=== PATIENT | female | born 1970 | race Caucasian/White ===

== ENCOUNTER → 2020-08-26 11:23 | Outpatient (CLI) | payer OTHER, SELFPAY ==
[2020-08-30 17:01] LABS: HPV APTIMA, High Risk Negative (Negative)
== END ==
PROVIDERS: PCP Family Medicine; Visit Provider Obstetrics & Gynecology
DX: Z12.4 Encounter for screening for malignant neoplasm of cervix (principal)
CPT/HCPCS: 87624; 88175; G0145

== ENCOUNTER → 2020-09-02 15:52 | Outpatient (CLI) | payer OTHER, SELFPAY ==
--- NOTE | 2020-09-02 | EMB_PTH ---
PATIENT: HI KU LOC: [facility] U#:[id number] AGE/SX: 54/F ROOM: RE09/02/[address]: Dr. Kelechi Carrasquillo MD : 1970 BED: DIS: SPEC #: [id number] RECD: 09/02/20 16:25 STATUS: BARRY REAnthony #: [id number] SHENA: 09/02/20 00:[address]: Kelechi Carrasquillo DEPT: SURGICAL PATHOLOGY RECD BY: Artie Rogers ENTERED: 09/03/20 07:57 SP TYPE: ENDOM BX/C BANDAR DR: Dr. Dorie Stratton MD Tissues: Endometrium, NOS Procedures: Surgery Specimen Level IV HEADER OPERATION: Endometrial biopsy PRE-OP DIAGNOSIS: Abnormal bleeding TISSUE SUBMITTED: Endometrial biopsy MICROSCOPIC DIAGNOSIS Endometrial biopsy: Scant superficial fragments of weakly proliferative endometrium and blood clots. See comment. PATI:[email or web address] 09/06/2020 COMMENT The specimen predominantly consists of blood clots. Clinical correlation and appropriate follow up are necessary. MICROSCOPIC DESCRIPTION Slides are reviewed. GROSS DESCRIPTION Received in fixative is one container labeled with the patient's name and designated EMB. The specimen consists of multiple fragments of hemorrhagic soft tissue that in aggregate measure 3 x 2.5 x 0.3 cm. The specimen is totally submitted in one cassette. / SJ:bebeto 09/03/20 TC:4 CPT: 43499
== END ==
PROVIDERS: PCP Family Medicine; Visit Provider Obstetrics & Gynecology
DX: N93.9 Abnormal uterine and vaginal bleeding, unspecified (principal)
CPT/HCPCS: 88305

== ENCOUNTER 2022-12-25 19:22 | Emergency (ER) | payer BC, SELFPAY ==
[2022-12-25 19:23] VITALS: BP 116/94; PULSE 110; RESP 18; TEMP 36.6; O2SAT 100
[2022-12-25 19:24] VITALS: BP 116/94; PULSE 110; RESP 18; TEMP 36.6; O2SAT 100; BMI 22.9
--- NOTE | 2022-12-25 19:45 | CT_ITS ---
STUDY: CT BRAIN WITHOUT CONTRAST REASON FOR EXAM: Female, 52 years old. Numbness right lower extremity, Hernandez''s palsy, bit RADIATION DOSAGE (If Supplied By Facility): CTDIvol = ( 44.99 ) mGy, DLP = ( 796.11 ) mGycm TECHNIQUE: Transaxial CT imaging of the brain was performed without administration of intravenous contrast material. Individualized dose optimization techniques were used for this CT. COMPARISON: MR brain 03/06/2013. FINDINGS: Normal soft tissue structures. Normal calvarium. Normal size ventricles and extra-axial spaces for the patient''s age. Normal white matter tracts of the cerebral hemispheres. Normal basal ganglia and thalami. Normal brainstem. Normal cerebellum. There is no intracranial hemorrhage. There are no findings of an acute ischemic infarction. Normal visualized paranasal sinuses. CT/Brain/Head without Contrast IMPRESSION: Normal unenhanced CT scan of the brain. Electronically Signed: Lizeth Beaver MD at 20:43 EDT Reading Location ID and State: [id number] / Tel , Service support ,
[2022-12-25 19:48] VITALS: BP 116/94; PULSE 110; RESP 18; O2SAT 100
[2022-12-25 19:49] VITALS: BMI 22.9
[2022-12-25 20:03] LABS: Absolute Lymphocyte Count 1.67 X10^3/uL (0.83-4.51); Absolute Neutrophil Count 3.8 X10^3/uL (2.0-7.7); Basophil# 0.04 X10^3/uL; Basophil% 0.6 % (0-1); Eosinophils% 4.8 % (0-5); Hematocrit 38.1 % (37-47); Hemoglobin 12.1 g/dL (12.0-15.0); Lymphocyte # 1.67 X10^3/ul (0.83-4.51); Lymphocyte % 26.8 % (19-41); Mean Corp Hgb Conc 31.8 g/dL (32-36); Mean Corpuscular Hgb 27.4 pg (27.0-32.0); Mean Corpuscular Volume 86.4 fL (81-99); Mean Platelet Vol. 10.4 fl (6.2-12.0); Monocyte# 0.42 X10^3/uL; Monocyte% 6.8 % (0-10); NRBC Flagged by Analyzer 0 % (0-5); Neutrophil # 3.77 X10^3/uL (2.7-7.7); Neutrophil % 60.7 % (47-70); Platelet Count 265 K/mm3 (150-450); RBC Distribution Width CV 13.2 % (11.6-14.6); RBC Distribution Width SD 41.1 fl (35.1-43.9); Red Blood Count 4.41 M/mm3 (4.2-5.4); White Blood Count 6.2 K/mm3 (4.4-11.0)
--- NOTE | 2022-12-25 20:04 | EDS_ITS ---
HPI History of Present Illness Chief Complaint: Neuro S/Sx Detail of Chief Complaint: Possible tick bite/insect bite with neurologic symptoms Informant: patient Onset/Context/Timing Onset: Weeks Context: Sudden Onset Timing: Continuous Quality: Paresthesia of right lower extremity, Hernandez's palsy, rash pubic region Location: HPI narrative for details Current Severity: Mild Maximum Severity: Mild Worsened by: Nothing Relieved by: Nothing Associated Symptoms Associated Symptoms: Mild headache. No visual, ocular auditory symptoms. No photophobia. Narrative Narrative: Patient is a 52-year-old woman who presents with multiple symptoms. She has been bit by insect several weeks ago and first part of December. She initially complained of aching in her right forearm. She then complained about discomfort in the right heel which radiated cephalad. This was then followed by total right lower extremity numbness, December 02 she also was bit by something prior to her symptoms in the right lower extremity. She denies fever or chills. She denies double vision, blurred vision or loss of vision. She denies neck pain but complains of neck stiffness. She denies respiratory or cardiac symptoms. She denies GI symptoms. She denies urologic symptoms. She has not noted a rash other than the bite in the pubic area She states the facial numbness and weakness started last week. Prior similar symptoms: No Recent Illness/Hospitalization: No PFSH PFS Medical History Hypothyroidism Allergy/AdvReac Type Severity Reaction Status Date / Time No Known Allergies Allergy Verified 12/25/22 19:45 Social History (Updated 12/25/22 @ 20:[address] Flaco Chavez MD) household members: spouse Smoking Status: Never smoker substance use type: does not use ROS ROS ED Constitutional Constitutional ED: Denies chills, fever(s), subjective, sweats or weight loss Eyes Eyes: Denies blurry vision, change in vision, diplopia or other ENT ENT ED: Denies ear pain, rhinorrhea, sore throat or other Cardiovascular Cardiovascular: Denies chest pain, orthopnea, palpitations, paroxysmal nocturnal dyspnea, racing heartbeat or other Respiratory/Chest Respiratory/Chest: Denies cough, dyspnea, dyspnea on exertion, orthopnea, paroxysmal nocturnal dyspnea, sputum or other Gastrointestinal Gastrointestinal: Denies abdominal pain, constipation, diarrhea, melena, nausea, vomiting or other Genitourinary Genitourinary ED: Denies dysuria, hematuria, LMP (females 10-50), urinary frequency or other Musculoskeletal Musculoskeletal: Reports arthralgias and myalgias Integumentary Reports rash Neurologic Neurologic: Denies paresthesias or weakness Endocrine Endocrinology: Denies cold intolerance, heat intolerance or polydipsia Hematologic/Lymphatic Hematologic/Lymphatic: Reports systems reviewed and no addt'l complaints, except as documented Allergic/Immunologic Allergic/Immunologic ED: Denies mouth swelling, tongue swelling or urticaria EXAM Physical Exam Const Vital Signs: 12/25/22 19:24 12/25/22 19:23 12/25/22 19:48 Temperature 97.8 F 97.8 F Temperature Source Temporal Temporal Pulse Rate 110 H 110 H 110 H Respiratory Rate 18 18 18 Blood Pressure 116/94 H 116/94 H 116/94 H Blood Pressure Mean 101 101 101 Pulse Ox 100 100 100 Oxygen Delivery Method Room Air Room Air Room Air Positive well nourished and well developed General Appearance ED: well developed and NAD; Negative for pallor HEENT Reports moist mucous membranes HEENT Narrative: Patient has asymmetric facial expression on the right. Findings are consistent with Hernandez's palsy on the right. There is no lesions noted the ear to suggest Strawn Lucero syndrome. Nares patent. Posterior pharynx is normal. Eyes PERRL and EOMs intact bilaterally Eyes Narrative: There is no nystagmus. General Eye ED: Negative for pale conjunctiva or scleral icterus Neck no lymphadenopathy, supple and no JVD Neck Narrative: There is no mid GI findings. Resp normal respiratory effort and clear to auscultation bilaterally Cardio regular rate, regular rhythm, S1 normal heart sound, S2 normal heart sound and no murmurs GI normal to inspection, nondistended, normoactive bowel sounds, non-tender, non- distended and no masses; Negative for hepatosplenomegaly Back/Spine no CVA tenderness Extremity normal to inspection General Extremety ED: Negative for edema or tenderness General Extremity: Negative for edema Neuro oriented x3, No CN's II-XII intact bilaterally and No no sensory deficits noted Neuro Narrative: There is no dysmetria. There is no clonus or Babinski sign noted. Patient does have Hernandez's palsy on the left. Sensorium / Orientation: alert Motor Exam: strength 5/5 throughout Psych mental status grossly normal Skin no rashes or lesions noted, no wounds and skin turgor normal General Skin Exam: Negative for jaundice or pallor MDM MDM MDM Narrative Medical decision making narrative: With insect bite possible tick bite since there cats have ticks differential would include Lyme disease since she has Hernandez's palsy. 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 Work-up included CAT scan appropriate blood work review of prior records. History & Record Review Additional record(s) reviewed:: Prior outpatient record Lab Data Attestation: I reviewed the patient's lab results. Lab results narrative: CBC is normal. Comprehensive metabolic panel reveals slight elevation of ALT and alkaline phosphatase 69 and 1.37. Comprehensive metabolic panel is otherwise unremarkable Labs: Laboratory Results - last 24 hr 12/25/22 19:58 WBC 6.2 RBC 4.41 Hgb 12.1 Hct 38.1 MCV 86.4 MCH 27.4 MCHC 31.8 L RDW Std Deviation 41.1 RDW Coeff of Victor M 13.2 Plt Count 265 MPV 10.4 Immature Gran % (Auto) 0.300 Neut % (Auto) 60.7 Lymph % (Auto) 26.8 Carbon % (Auto) 6.8 Eos % (Auto) 4.8 Baso % (Auto) 0.6 Absolute Neuts (auto) 3.8 Absolute Lymphs (auto) 1.67 Nucleated RBC % 0 Sodium 139 Potassium 3.8 Chloride 106 Carbon Dioxide 32.0 Anion Gap 1 L BUN 15 Creatinine 1.01 Estim Creat Clear Calc 60.30 Est GFR (MDRD) Af Amer 74 Est GFR (MDRD) Non-Af 61 BUN/Creatinine Ratio 14.9 Glucose 108 H Calcium 8.7 Total Bilirubin 0.30 AST 22 ALT 69 H Alkaline Phosphatase 137 H Total Protein 7.1 Albumin 3.1 L Globulin 4.0 Albumin/Globulin Ratio 0.8 L Radiography Diagnostic Testing: Clinical Impression(s) from Imaging Studies Brain CT 12/25/22 19:45 IMPRESSION: Normal unenhanced CT scan of the brain. Electronically Signed: Lizeth Beaver MD at 20:43 EDT Reading Location ID and State: [id number] / Tel , Service support , Treatment and Re-Evaluation :: Patient and were informed of results. Since Lyme disease is in the differential prednisone was not given. She was instructed to put 1 drop of artificial tears in her right eye every hour while awake. Also use a lubricant gel at bedtime so that her eye does not dry out. Discharge Plan Triage Chief Complaint: Neuro S/Sx ED Provider: Flaco Chavez Dx/Rx/DC Orders Clinical Impression: Right-sided Hernandez's palsy, Paresthesia of right lower extremity, Insect bite Instructions: ED Hernandez's Palsy, ED Paraesthesias Primary Care Provider: Ericka Bae Referrals: Dorie Stratton MD [Med Staff - Casket Assembler] - Ericka Bae DO [Primary Care Provider] - 3-5 Days Disposition Disposition: Home, Self Care
[2022-12-25 20:20] LABS: ALB/GLOB Ratio 0.8 RATIO (0.9-2.4); AST(SGOT) 22 U/L (15-37); Alanine Aminotransfer ALT/SGPT 69 U/L (13-56); Albumin, Serum 3.1 g/dL (3.2-5.0); Alkaline Phosphatase 137 U/L (45-117); Anion Gap 1 (5-15); BUN 15 mg/dL (7-18); BUN/Creat Ratio 14.9 RATIO (10-20); Calcium,Total 8.7 mg/dL (8.5-10.1); Chloride 106 mmol/L (98-107); Creatinine, Serum 1.01 mg/dL (0.55-1.02); EST Glomerular Filtration Rate 61 mL/min (>60); Est Glom Filt Rate - Afr Amer 74 mL/min (>60); Glucose 108 mg/dL (74-106); Potassium 3.8 mmol/L (3.5-5.1); Protein, Total 7.1 g/dL (6.4-8.2); Sodium Level 139 mmol/L (136-145)
[2022-12-25 22:35] VITALS: PULSE 68; RESP 16
== END 2022-12-25 23:08 | disposition home or self-care (01) ==
PROVIDERS: Emergency Provider Emergency Medicine; PCP Family Medicine; Visit Provider Emergency Medicine
DX: G51.0 Bell's palsy (principal); R20.2 Paresthesia of skin
CPT/HCPCS: 70450; 80053; 85025; 86618; 99283

== ENCOUNTER → 2023-01-03 | Outpatient (CLI) | payer BC, SELFPAY ==
[2023-01-03 13:01] LABS: Progesterone Level 0.36 ng/mL (See Comment)
[2023-01-03 13:20] LABS: Estradiol < 11.0 pg/mL; Free T3 2.7 pg/mL (2.18-3.98); T4 Free Direct 0.98 ng/dL (0.76-1.46)
[2023-01-04 04:06] LABS: Thyroid Peroxidase AB < 9 IU/mL (0-34)
== END | disposition home or self-care (01) ==
PROVIDERS: PCP Family Medicine; Referring Provider Preventive Medicine Public Health & General Preventive Medicine; Visit Provider Preventive Medicine Public Health & General Preventive Medicine
DX: E03.9 Hypothyroidism, unspecified (principal); E34.9 Endocrine disorder, unspecified; N95.1 Menopausal and female climacteric states
CPT/HCPCS: 36415; 82670; 84144; 84403; 84439; 84443; 84481; 86376

== ENCOUNTER → 2023-02-06 | Outpatient (CLI) | payer BC, SELFPAY ==
[2023-02-06 11:02] LABS: Hemoglobin A1c 5.2 % (3.8-5.6)
[2023-02-06 11:06] LABS: Free T3 3.8 pg/mL (2.18-3.98)
[2023-02-06 14:50] LABS: Insulin 6.6 mU/L (2.6-37.6)
[2023-02-07 14:08] LABS: C-Peptide 2.3 ng/mL (1.1-4.4); Thyroid Peroxidase AB 10 IU/mL (0-34)
== END | disposition home or self-care (01) ==
LOC: MTLAB 08:02
PROVIDERS: PCP Family Medicine; Referring Provider Preventive Medicine Public Health & General Preventive Medicine; Visit Provider Preventive Medicine Public Health & General Preventive Medicine
DX: E03.9 Hypothyroidism, unspecified (principal); E27.49 Other adrenocortical insufficiency; E16.2 Hypoglycemia, unspecified
CPT/HCPCS: 36415; 82533; 83036; 83525; 84439; 84443; 84481; 84681; 86376

== ENCOUNTER → 2023-04-04 | Outpatient (CLI) | payer BC, SELFPAY ==
[2023-04-06 14:53] LABS: Lyme Scn Total Ab w/Rflx Positive (Negative)
== END | disposition home or self-care (01) ==
LOC: MTLAB 14:47
PROVIDERS: PCP Family Medicine; Referring Provider Family Medicine; Visit Provider Family Medicine
DX: A69.20 Lyme disease, unspecified (principal)
CPT/HCPCS: 36415; 86618

== ENCOUNTER → 2023-09-25 | Outpatient (CLI) | payer BC, SELFPAY ==
--- NOTE | 2023-09-25 15:44 | RAD_ITS ---
INDICATION: R knee pain EXAMINATION/TECHNIQUE: X-RAY - RIGHT XR Knee Complete 4 Views COMPARISON: FINDINGS: SOFT TISSUES: No soft tissue swelling or gas. No radiopaque foreign body. Mild suprapatellar effusion. BONES/JOINTS: No acute fracture or subluxation.. Normal alignment. Preservation of the joint space.. No sclerotic or destructive changes observed. RAD/Knee 4 or More Views IMPRESSION: Mild effusion. Electronically Signed: Augustine Fong DO at 16:07 EDT ,
== END | disposition home or self-care (01) ==
LOC: MTRAD 15:34
PROVIDERS: PCP Family Medicine; Referring Provider Family Medicine; Visit Provider Family Medicine
DX: M25.561 Pain in right knee (principal)
CPT/HCPCS: 73564

== ENCOUNTER → 2023-10-15 | Outpatient (CLI) | payer BC, SELFPAY ==
--- NOTE | 2023-10-15 08:29 | MRI_ITS ---
EXAM: MR RIGHT LOWER EXTREMITY WITHOUT INTRAVENOUS CONTRAST, KNEE CLINICAL INDICATION: swelling, hx of lyme disease untreated TECHNIQUE: Multiplanar and multisequence MR images of the right knee without intravenous contrast. COMPARISON: No relevant prior studies available. FINDINGS: BONES/JOINTS: Full-thickness fissures involving the lateral patellar facet without subchondral marrow signal alterations. EXTENSOR MECHANISM: Unremarkable. MEDIAL MENISCUS: Unremarkable. LATERAL MENISCUS: Complex lateral meniscus tear at the junction of the posterior root ligament and posterior horn of the lateral meniscus. MEDIAL CAPSULE/SUPPORTING STRUCTURES: Unremarkable. Intact. LATERAL CAPSULE/SUPPORTING STRUCTURES: Unremarkable. Lateral collateral ligamentous complex, inclusive of the popliteal tendon, are intact. ANTERIOR CRUCIATE LIGAMENT: Unremarkable. Intact. POSTERIOR CRUCIATE LIGAMENT: Unremarkable. Intact. MUSCLES: Unremarkable. CARTILAGE: Full-thickness chondral defect at the middle weightbearing portion of the lateral femoral condyle without subchondral marrow signal alterations. FLUID: Large joint effusion. Small Hammonds''s cyst without evidence of inferior leakage/rupture. OTHER SOFT TISSUES: Subcutaneous edema along the the lateral aspect of the extremity. MRI/Lower Ext Joint Only (Routine) IMPRESSION: 1. Complex lateral meniscus tear at the junction of the posterior root ligament and posterior horn of the lateral meniscus. 2. Full-thickness fissures involving the lateral patellar facet without subchondral marrow signal alterations. 3. Full-thickness chondral defect at the middle weightbearing portion of the lateral femoral condyle without subchondral marrow signal alterations. 4. Large joint effusion with a small Hammonds''s cyst with evidence of inferior leakage or rupture. Electronically Signed: Marvin Rowell MD at 21:36 EDT ,
== END | disposition home or self-care (01) ==
PROVIDERS: PCP Family Medicine; Referring Provider Orthopaedic Surgery Sports Medicine; Visit Provider Orthopaedic Surgery Sports Medicine
DX: M79.89 Other specified soft tissue disorders (principal); Z86.19 Personal history of other infectious and parasitic diseases
CPT/HCPCS: 73721

== ENCOUNTER → 2023-10-18 | Outpatient (CLI) | payer BC, SELFPAY ==
[2023-10-18 12:29] LABS: Absolute Lymphocyte Count 2.02 X10^3/uL (0.83-4.51); Absolute Neutrophil Count 5.9 X10^3/uL (2.0-7.7); Basophil# 0.06 X10^3/uL; Basophil% 0.7 % (0-1); Eosinophil# 0.29 X10^3/uL; Eosinophils% 3.2 % (0-5); Hematocrit 38.5 % (37-47); Hemoglobin 12.2 g/dL (12.0-15.0); Lymphocyte # 2.02 X10^3/ul (0.83-4.51); Lymphocyte % 22.3 % (19-41); Mean Corp Hgb Conc 31.7 g/dL (32-36); Mean Corpuscular Volume 85.2 fL (81-99); Mean Platelet Vol. 10.2 fl (6.2-12.0); Monocyte% 7.7 % (0-10); NRBC Flagged by Analyzer 0 % (0-5); Neutrophil # 5.94 X10^3/uL (2.7-7.7); Neutrophil % 65.7 % (47-70); Platelet Count 480 K/mm3 (150-450); RBC Distribution Width CV 12.6 % (11.6-14.6); Red Blood Count 4.52 M/mm3 (4.2-5.4); White Blood Count 9.1 K/mm3 (4.4-11.0)
[2023-10-18 17:43] LABS: ALB/GLOB Ratio 0.7 RATIO (0.9-2.4); AST(SGOT) 12 U/L (15-37); Alanine Aminotransfer ALT/SGPT 19 U/L (13-56); Albumin, Serum 3.2 g/dL (3.2-5.0); Alkaline Phosphatase 74 U/L (45-117); Anion Gap 6 (5-15); BUN 11 mg/dL (7-18); BUN/Creat Ratio 9.9 RATIO (10-20); Calcium,Total 9.6 mg/dL (8.5-10.1); Chloride 103 mmol/L (98-107); Creatinine, Serum 1.11 mg/dL (0.55-1.02); EST Glomerular Filtration Rate 54 mL/min (>60); Est Glom Filt Rate - Afr Amer 66 mL/min (>60); Estradiol 13.3 pg/mL; Free T3 2.9 pg/mL (2.18-3.98); Globulin 4.8 g/dL (2.2-4.2); Glucose 93 mg/dL (74-106); Sodium Level 137 mmol/L (136-145); T4 Free Direct 1.12 ng/dL (0.76-1.46); Thyroid Stim Hormone (TSH) 0.95 uIU/mL (0.358-3.74)
[2023-10-19 04:07] LABS: Thyroid Peroxidase AB 10 IU/mL (0-34)
[2023-10-20 11:09] LABS: PROGESTERONE 0.3 ng/mL (.)
== END | disposition home or self-care (01) ==
LOC: MTLAB 10:49
PROVIDERS: PCP Family Medicine; Referring Provider Preventive Medicine Public Health & General Preventive Medicine; Visit Provider Preventive Medicine Public Health & General Preventive Medicine
DX: N95.1 Menopausal and female climacteric states (principal); E03.9 Hypothyroidism, unspecified
CPT/HCPCS: 36415; 80053; 82670; 84144; 84403; 84439; 84443; 84481; 85025; 86376

== ENCOUNTER → 2024-04-29 | Outpatient (CLI) | payer BC, SELFPAY ==
[2024-04-29 15:28] LABS: Absolute Lymphocyte Count 2.31 X10^3/uL (0.83-4.51); Absolute Neutrophil Count 3.2 X10^3/uL (2.0-7.7); Basophil# 0.06 X10^3/uL; Basophil% 0.9 % (0-1); Eosinophil# 0.48 X10^3/uL; Eosinophils% 7.3 % (0-5); Hematocrit 43.2 % (37-47); Hemoglobin 13.7 g/dL (12.0-15.0); Lymphocyte # 2.31 X10^3/ul (0.83-4.51); Lymphocyte % 35.2 % (19-41); Mean Corp Hgb Conc 31.7 g/dL (32-36); Mean Corpuscular Hgb 27.2 pg (27.0-32.0); Mean Corpuscular Volume 85.7 fL (81-99); Monocyte# 0.47 X10^3/uL; Monocyte% 7.2 % (0-10); NRBC Flagged by Analyzer 0 % (0-5); Neutrophil # 3.23 X10^3/uL (2.7-7.7); Neutrophil % 49.1 % (47-70); Platelet Count 314 K/mm3 (150-450); RBC Distribution Width CV 13.4 % (11.6-14.6); RBC Distribution Width SD 42.1 fl (35.1-43.9); Red Blood Count 5.04 M/mm3 (4.2-5.4); White Blood Count 6.6 K/mm3 (4.4-11.0)
[2024-04-29 16:15] LABS: AST(SGOT) 20 U/L (15-37); Alanine Aminotransfer ALT/SGPT 38 U/L (13-56); Albumin, Serum 3.8 g/dL (3.2-5.0); Alkaline Phosphatase 81 U/L (45-117); Anion Gap 6 (5-15); BUN 13 mg/dL (7-18); BUN/Creat Ratio 14.7 RATIO (10-20); Calcium,Total 9.1 mg/dL (8.5-10.1); Chloride 106 mmol/L (98-107); Creatinine, Serum 0.88 mg/dL (0.55-1.02); EST Glomerular Filtration Rate 71 mL/min (>60); Est Glom Filt Rate - Afr Amer 86 mL/min (>60); Estradiol 50.7 pg/mL; Free T3 3.4 pg/mL (2.18-3.98); Globulin 3.9 g/dL (2.2-4.2); Glucose 70 mg/dL (74-106); Potassium 3.7 mmol/L (3.5-5.1); Protein, Total 7.7 g/dL (6.4-8.2); Sodium Level 139 mmol/L (136-145); T4 Free Direct 0.84 ng/dL (0.76-1.46); Thyroid Stim Hormone (TSH) 0.853 uIU/mL (0.358-3.740)
[2024-04-30 04:08] LABS: PROGESTERONE 0.4 ng/mL (.); Thyroid Peroxidase AB < 9 IU/mL (0-34)
== END | disposition home or self-care (01) ==
PROVIDERS: PCP Family Medicine; Referring Provider Preventive Medicine Public Health & General Preventive Medicine; Visit Provider Preventive Medicine Public Health & General Preventive Medicine
DX: N95.1 Menopausal and female climacteric states (principal); E03.9 Hypothyroidism, unspecified
CPT/HCPCS: 36415; 80053; 82670; 84144; 84403; 84439; 84443; 84481; 85025; 86376

== ENCOUNTER → 2024-10-30 | Outpatient (CLI) | payer BC, SELFPAY ==
[2024-10-30 12:43] LABS: Absolute Neutrophil Count 2.5 X10^3/uL (2.0-7.7); Basophil# 0.05 X10^3/uL; Basophil% 0.8 % (0-1); Eosinophil# 0.49 X10^3/uL; Eosinophils% 8.3 % (0-5); Hematocrit 40.9 % (37-47); Hemoglobin 13.8 g/dL (12.0-15.0); Mean Corp Hgb Conc 33.7 g/dL (32-36); Mean Corpuscular Hgb 27.7 pg (27.0-32.0); Mean Corpuscular Volume 82.1 fL (81-99); Mean Platelet Vol. 10.9 fl (6.2-12.0); Monocyte% 8.5 % (0-10); NRBC Flagged by Analyzer 0 % (0-5); Neutrophil # 2.54 X10^3/uL (2.7-7.7); Neutrophil % 43.2 % (47-70); Platelet Count 253 K/mm3 (150-450); RBC Distribution Width CV 14.3 % (11.6-14.6); RBC Distribution Width SD 42.1 fl (35.1-43.9); Red Blood Count 4.98 M/mm3 (4.2-5.4); White Blood Count 5.9 K/mm3 (4.4-11.0)
[2024-10-30 13:42] LABS: ALB/GLOB Ratio 1.6 RATIO (0.9-2.4); AST(SGOT) 19 U/L (<=31); Alanine Aminotransfer ALT/SGPT 17 U/L (<=34); Albumin, Serum 4.5 g/dL (3.5-5.0); Alkaline Phosphatase 67 U/L (35-104); Anion Gap 12 (5-15); BUN 11 mg/dL (4-19); BUN/Creat Ratio 12.6 RATIO (10-20); Carbon Dioxide 25.1 mmol/L (21.0-32.0); Chloride 103 mmol/L (98-108); EST Glomerular Filtration Rate 76 (>60); Globulin 2.8 g/dL (2.2-4.2); Glucose 107 mg/dL (70-99); Potassium 3.9 mmol/L (3.3-5.1); Protein, Total 7.3 g/dL (5.9-8.4); Sodium Level 141 mmol/L (133-145)
[2024-10-30 13:49] LABS: Estradiol < 5.0 pg/mL; Free T3 4.4 pg/mL (2.18-3.98); Testosterone, Total < 2.50 ng/dL (9-55)
[2024-10-31 05:07] LABS: PROGESTERONE 0.4 ng/mL (.); Thyroid Peroxidase AB < 9 IU/mL (0-34)
== END | disposition home or self-care (01) ==
LOC: MTLAB 09:32
PROVIDERS: PCP Family Medicine; Referring Provider Preventive Medicine Public Health & General Preventive Medicine; Visit Provider Preventive Medicine Public Health & General Preventive Medicine
DX: E03.9 Hypothyroidism, unspecified (principal); N95.1 Menopausal and female climacteric states
CPT/HCPCS: 36415; 80053; 82670; 84144; 84403; 84439; 84443; 84481; 85025; 86376

== ENCOUNTER → 2025-04-24 | Outpatient (CLI) | payer BC, SELFPAY ==
[2025-04-24 12:14] LABS: Hematocrit 42.1 % (37-47); Hemoglobin 13.9 g/dL (12.0-15.0); Immature Granulocytes Count 0.020 X10^3/uL (0.0-0.0); Mean Corp Hgb Conc 33.0 g/dL (32-36); Mean Corpuscular Volume 84.0 fL (81-99); Mean Platelet Vol. 11.1 fl (6.2-12.0); NRBC Flagged by Analyzer 0 % (0-5); Platelet Count 278 K/mm3 (150-450); RBC Distribution Width CV 13.6 % (11.6-14.6); RBC Distribution Width SD 41.9 fl (35.1-43.9); Red Blood Count 5.01 M/mm3 (4.2-5.4); White Blood Count 6.1 K/mm3 (4.4-11.0)
[2025-04-24 12:47] LABS: AST(SGOT) 23 U/L (<=31); Alanine Aminotransfer ALT/SGPT 30 U/L (<=34); Albumin, Serum 4.6 g/dL (3.5-5.0); Alkaline Phosphatase 75 U/L (35-104); Anion Gap 11 (5-15); BUN 12 mg/dL (4-19); BUN/Creat Ratio 12.4 RATIO (10-20); Calcium,Total 9.7 mg/dL (7.6-11.0); Carbon Dioxide 27.8 mmol/L (21.0-32.0); Chloride 103 mmol/L (98-108); Follicle Stimulating Hormone 97.6 mIU/mL; Free T3 4.0 pg/mL (2.18-3.98); Globulin 2.9 g/dL (2.2-4.2); Glucose 88 mg/dL (70-99); Potassium 4.3 mmol/L (3.3-5.1)
[2025-04-25 04:07] LABS: PROGESTERONE 0.3 ng/mL (.)
[2025-04-27 23:08] LABS: Anti-Mullerian Hormone,Serum < 0.015 ng/mL (.); Estrogen, Total, Serum 66 pg/mL (40-244)
== END | disposition home or self-care (01) ==
LOC: MTLAB 10:58
PROVIDERS: PCP Family Medicine; Referring Provider Nurse Practitioner Family; Visit Provider Nurse Practitioner Family
DX: E03.9 Hypothyroidism, unspecified (principal); N95.1 Menopausal and female climacteric states; N95.0 Postmenopausal bleeding
CPT/HCPCS: 36415; 80053; 82670; 82672; 83001; 83516; 84144; 84403; 84439; 84443; 84481; 85025; 86376

== ENCOUNTER → 2025-05-11 | Outpatient (CLI) | payer BC, SELFPAY ==
--- NOTE | 2025-05-11 08:56 | US_ITS ---
PROCEDURE: PELVIC W/ TRANSVAGINAL 05/11/2025 REASON FOR EXAM: DYSPAREUNIA Abnormal uterine bleeding. Cycle 6+ months apart. TECHNIQUE: Procedure Code: [id number] Modality: US Procedure: PELVIC W/ TRANSVAGINAL COMPARISON: None FINDINGS: Transabdominal and endovaginal pelvic sonography were performed. Measurements: Uterus: 7.2 x 5.0 x 4.5 cm with a volume of 84 mL Endometrial Thickness: 6 mm Right Ovary: 2.8 x 2.3 x 1.6 cm with a volume of 5.3 mL. Left Ovary: 2.0 x 1.7 x 1.6 with a volume of 2.9 mL. Uterus: The uterus is retroverted. The size, contour and echogenicity of the uterus are within normal limits. Cervix: Nabothian cysts are seen in the cervix. Endometrium: Endometrium measures 3 mm. There is fluid in the endometrial canal. Endometrium with the fluid component within it measures 6 mm. Endometrium is hyperechoic. Right ovary: Size, contour, and echogenicity are within normal limits. There are no masses noted. There is blood flow within the ovary. There is no evidence of ovarian torsion. Left ovary: Size, contour, and echogenicity are within normal limits. There are no masses noted. There is blood flow within the ovary. There is no evidence of ovarian torsion. Other: There is a small amount of fluid in the cul-de-sac. Urinary bladder: Urinary bladder measures 6.9 x 6.8 x 3.9 cm. The bladder wall is not thick. Bladder wall is smooth. There is no filling defect within the urinary bladder. US/Pelvic w/ Transvaginal IMPRESSION: Nabothian cysts are seen in the cervix. Endometrium measures 3 mm but with the fluid component measures 6 mm. There is a small amount of fluid within the cul-de-sac which most likely is phy siologic. Normal appearance to both ovaries. Reading Location: [id number]
== END | disposition home or self-care (01) ==
LOC: OPUS 08:55
PROVIDERS: PCP Family Medicine; Referring Provider Nurse Practitioner Family; Visit Provider Nurse Practitioner Family
DX: N94.10 Unspecified dyspareunia (principal)
CPT/HCPCS: 76830; 76856